=== PATIENT | female | born 1985 | race Caucasian/White ===

== ENCOUNTER 2020-01-08 15:50 | Emergency (ER) | payer BC ==
[~2020-01-08] VITALS: Ht 175.3 cm; Wt 140.9 kg
[2020-01-08 15:58] VITALS: BP 139/86
--- NOTE | 2020-01-08 16:58 | RAD ---
Cervical spine radiograph 01/08/2020 4:27 PM INDICATION: Neck pain radiating to the left arm and hand COMPARISON: None available. TECHNIQUE: Lateral, AP and odontoid views of the cervical spine are provided. FINDINGS: The cervical spine is visualized from the craniocervical junction through the cervicothoracic junction. Alignment of the cervical spine is normal. No acute fracture is visualized. Bone mineralization is within normal limits. Mild disc height loss at C6-C7 with mild anterior marginal osteophytosis. There is no prevertebral soft tissue swelling. No significant facet arthropathy. No significant uncovertebral joint disease. There is no osseous spinal canal stenosis. The lateral masses of C1 articulate appropriately with the C2 vertebral body. IMPRESSION: No acute fracture or malalignment of the cervical spine. Electronically signed by: Devika Michael MD (01/08/2020 4:55 PM) [place]
[2020-01-08] MEDS ORDERED: NAPR-682 PO (17:03)
--- NOTE | 2020-01-08 17:03 | PHYS DOC ---
Past Medical History Past Medical History: Anxiety, Other Additional Past Medical Histor: ADHS, BORDERLINE PERSONALITY DISORDER, MOOD DISORDER Past Surgical History: No Surgical History Smoking Status: Current Every Day Smoker Additional Information: PT REPORTS VAPING Alcohol Use: Occasionally General Adult EDM: Chief Complaint: UPPER EXTREMITY PAIN HPI: HPI: Patient is a 34 year old female who present to ER today for evaluation of left shoulder pain that radiated to her left arm elbow and left wrist. Patient denies any injury. Symptoms have been going on for several weeks. Patient denies any weakness in her upper extremities.. Patient denies any headache. Review of Systems: Review of Systems: Constitutional: Denies fever or chills. [] Eyes: Denies change in visual acuity. [] HENT: Denies nasal congestion or sore throat. [] Respiratory: Denies cough or shortness of breath. [] Cardiovascular: Denies chest pain or edema. [] GI: Denies abdominal pain, nausea, vomiting, bloody stools or diarrhea. [] : Denies dysuria. [] Musculoskeletal: Denies back pain. Positive for left shoulder pain, left arm pain, left wrist pain. Integument: Denies rash. [] Neurologic: Denies headache, focal weakness or sensory changes. [] Endocrine: Denies polyuria or polydipsia. [] Lymphatic: Denies swollen glands. [] Psychiatric: Denies depression or anxiety. [] Heart Score: Risk Factors: Risk Factors: DM, Current or recent (<one month) smoker, HTN, HLP, family history of CAD, obesity. Risk Scores: Score 0 - 3: 2.5% MACE over next 6 weeks - Discharge Home Score 4 - 6: 20.3% MACE over next 6 weeks - Admit for Clinical Observation Score 7 - 10: 72.7% MACE over next 6 weeks - Early Invasive Strategies Physical Exam: PE: Constitutional: Well developed, well nourished, no acute distress, non-toxic appearance. [] HENT: Normocephalic, atraumatic, bilateral external ears normal, oropharynx moist, no oral exudates, nose normal. [] Eyes: PERRLA, EOMI, conjunctiva normal, no discharge. [] Neck: Normal range of motion, no tenderness, supple, no stridor. [] Cardiovascular:Heart rate regular rhythm, no murmur [] Lungs & Thorax: Bilateral breath sounds clear to auscultation [] Abdomen: Bowel sounds normal, soft, no tenderness, no masses, no pulsatile masses. [] Skin: Warm, dry, no erythema, no rash. [] Back: No tenderness, no CVA tenderness. [] Extremities: No tenderness, no cyanosis, no clubbing, ROM intact, no edema. There is full range of motion of left shoulder, left elbow and left wrist. Neurologic: Alert and oriented X 3, normal motor function, normal sensory function, no focal deficits noted. [] Psychologic: Affect normal, judgement normal, mood normal. [] Current Patient Data: Vital Signs: Vital Signs Date Time Temp Pulse Resp B/P (MAP) Pulse Ox O2 Delivery O2 Flow Rate FiO2 01/08/20 15:58 97.4 104 21 139/86 (103) 97 Room Air 97.4 EKG: EKG: [] Radiology/Procedures: Radiology/Procedures: [][facility] [address] [place] [address] IMAGING REPORT Signed PATIENT: DIANA CARMONA ACCOUNT: [id number] : 1985 LOCATION: ER AGE: 34 SEX: F EXAM STATUS: REG ER ORD. PHYSICIAN: BEN ALVA DO REASON: NECK PAIN, RADIATING TO LEFT ARM AND HAND PROCEDURE: CERVICAL SPINE 2-3V Cervical spine radiograph 01/08/2020 4:27 PM INDICATION: Neck pain radiating to the left arm and hand COMPARISON: None available. TECHNIQUE: Lateral, AP and odontoid views of the cervical spine are provided. FINDINGS: The cervical spine is visualized from the craniocervical junction through the cervicothoracic junction. Alignment of the cervical spine is normal. No acute fracture is visualized. Bone mineralization is within normal limits. Mild disc height loss at C6-C7 with mild anterior marginal osteophytosis. There is no prevertebral soft tissue swelling. No significant facet arthropathy. No significant uncovertebral joint disease. There is no osseous spinal canal stenosis. The lateral masses of C1 articulate appropriately with the C2 vertebral body. IMPRESSION: No acute fracture or malalignment of the cervical spine. Electronically signed by: Devika Hernandez MD (01/08/2020 4:55 PM) [facility] [place] DICTATED and SIGNED BY: DEVIKA HERNANDEZ MD DATE: 01/08/20 3538 Course & Med Decision Making: Course & Med Decision Making Pertinent Labs and Imaging studies reviewed. (See chart for details) Patient is a 34-year-old female who presented to ER today for evaluation of left shoulder pain that radiates to her left elbow and left wrist consistent with cervical radiculopathy. Patient will need to follow-up with her family doctor for outpatient evaluation with MRI of her c-spine. Patient is amenable to plan of care. Dragon Disclaimer: Dragon Disclaimer: This electronic medical record was generated, in whole or in part, using a voice recognition dictation system. Departure Departure Impression: Primary Impression: Cervical radiculopathy Disposition: 01 HOME, SELF-CARE Condition: STABLE Referrals: NO PCP (PCP) PLEASE FOLLOW UP WITH YOUR FAMILY DOCTOR FOR REEVALUATION NEXT WEEK WITH MRI OF YOUR CERVICAL SPINE. Patient Instructions: Cervical Radiculopathy Scripts Naproxen Sodium (ANAPROX DS) 550 Mg Tablet 1 TAB PO BID for 15 Days, #30 TAB 0 Refills Prov: BEN ALVA DO 01/08/20 BEN ALVA DO January 08, 2020 17:03
== END 2020-01-08 17:36 | disposition home or self-care (01) ==
LOC: ER 15:50
DX: M54.12 Radiculopathy, cervical region (principal); M25.512 Pain in left shoulder; M25.532 Pain in left wrist; F41.9 Anxiety disorder, unspecified; F17.200 Nicotine dependence, unspecified, uncomplicated
CPT/HCPCS: 72040; 99283